=== PATIENT | female | born 1950 | race American Indian/Alaskan Native ===

== ENCOUNTER 2016-10-20 14:26 | Inpatient (IN) | payer OTHER ==
--- NOTE | 2016-10-20 15:08 | Emergency Department Report ---
Chief Complaint: Chest Pain Stated Complaint: CHEST PAIN Time Seen by Provider: 10/20/16 15:05 - HPI History of Present Illness: Patient here reports that she was at latter-day and she began having chest pressure. She said the pressure was 110 but she said she is not having that at present. She said it was located to her mid chest. Patient came by ambulance. Patient has a history of PR in 2010 and she has 3 coronary stents. She has a history of hypertension and breast cancer. EMS gave patient an aspirin. - ROS Review of Systems: All systems are negative unless stated in HPI above. - Exam Vital Signs: Vital Signs 10/20/16 14:48 Temperature 97.9 F Pulse Rate 52 L Respiratory 16 Rate Blood Pressure 104/73 O2 Sat by Pulse 100 Oximetry Physical Exam: General: This is a 66-year-old female well-nourished well-developed in no acute distress. CV: S1, S2. Regular rate and rhythm. Lungs:CTAB, NL work of breathing MSE screening note: Focused history and physical exam performed. Due to findings the following was ordered:see [facility] ED Medical Decision Making - Medical Decision Making Medical decision making: Patient seen by provider in triage area. Appropriate protocol activated and patient to main ED to be seen by physician. ED Disposition for MSE Condition: Stable
[2016-10-20 15:32] LABS: Basophils % (Auto) 1.4 % (0.0-1.8); Hematocrit 35.7 % (30.3-42.9); Mean Corpuscular HGB Conc 34 % (30-34); Mean Corpuscular Hemoglobin 31 pg (28-32); Mean Corpuscular Volume 93 fl (79-97); Platelet Count 380 K/mm3 (140-440); Red Blood Count 3.86 M/mm3 (3.65-5.03); Red Cell Distribution Width 13.1 % (13.2-15.2); White Blood Count 9.3 K/mm3 (4.5-11.0)
[2016-10-20 15:57] LABS: Blood Urea Nitrogen 12 mg/dL (7-17); Calcium 9.2 mg/dL (8.4-10.2); Carbon Dioxide 30 mmol/L (22-30); Chloride 92.2 mmol/L (98-107); Glucose 84 mg/dL (65-100); Potassium 3.4 mmol/L (3.6-5.0); Sodium 135 mmol/L (137-145)
[2016-10-20 15:59] LABS: Anion Gap 16 mmol/L
[2016-10-20 16:00] LABS: Creatine Kinase 45 units/L (30-135); Creatine Kinase MB < 1.0 ng/mL (0.0-4.0)
[2016-10-20] MEDS ORDERED: NITRO-BID 2% TP ONE ×2 (19:25→22:12)
--- NOTE | 2016-10-20 19:47 | Emergency Department Report ---
HPI - General Chief Complaint: Chest Pain Time Seen by Provider: 10/20/16 15:05 - HPI HPI: Room 1 The patient is a 66-year-old female presenting with a chief complaint of chest pain. The patient states this afternoon she was in mandaeism at approximately 13: 40 from she developed substernal chest pressure associated with shortness of breath. Patient denied nausea vomiting or diaphoresis. Patient states the pressure lasted for approximately 30 minutes and then resolved. The patient currently denies chest pressure or shortness of breath. The patient had 3 cardiac stents placed in 2010 Mariaa's last time she had a cardiac catheterization. The patient states she had a normal stress test last year Location: Chest Duration: 30 Minutes Quality: Pressure Severity: Currently 0/10 Modifying factors: [see above] Context: [see above] Mode of transportation: [not driving] ED Past Medical Hx - Past Medical History Previous Medical History?: Yes Hx Hypertension: Yes Hx Heart Attack/AMI: Yes (2010) - Surgical History Past Surgical History?: Yes Hx Coronary Stent: Yes (3 stents placed 2010) Hx Appendectomy: Yes Hx Breast Surgery: Yes (left mastectomy) Additional Surgical History: Hysterectomy - Family History Family history: no significant - Social History Smoking Status: Former Smoker (none 2-3 years) Substance Use Type: Alcohol (occasional), Prescribed - Medications Home Medications: Home Medications Medication Instructions Recorded Confirmed Last Taken Type ALPRAZolam [Xanax] 1 mg PO BID PRN 08/25/13 08/25/13 Unknown History Atorvastatin Calcium [Lipitor] 20 mg PO QHS 08/25/13 08/25/13 Unknown History Ciprofloxacin HCl [Cipro] 500 mg PO Q12H #10 tab 08/25/13 Unknown Rx HYDROcodone/APAP 5-325 [West 1 each PO Q6HR PRN #12 tablet 08/25/13 Unknown Rx 5/325 mg] Hydrocodone Bit/Acetaminophen 1 each PO 08/25/13 08/25/13 Unknown History [Vicodin 5/500] Zolpidem [Ambien] 08/25/13 08/25/13 Unknown History amLODIPine [Norvasc] 5 mg PO DAILY #30 tab 08/25/13 Unknown Rx ED Review of Systems ROS: Stated complaint: CHEST PAIN Other details as noted in HPI Comment: All other systems reviewed and negative Constitutional: denies: chills, fever Eyes: denies: eye pain, eye discharge, vision change ENT: denies: ear pain, throat pain Respiratory: shortness of breath Cardiovascular: chest pain Endocrine: no symptoms reported Gastrointestinal: denies: abdominal pain, nausea, diarrhea Genitourinary: denies: urgency, dysuria, discharge Musculoskeletal: denies: back pain, joint swelling, arthralgia Skin: denies: rash, lesions Neurological: denies: headache, weakness, paresthesias Psychiatric: denies: anxiety, depression Hematological/Lymphatic: denies: easy bleeding, easy bruising Physical Exam - Physical Exam Vital Signs: Vital Signs 10/20/16 14:48 Temperature 97.9 F Pulse Rate 52 L Respiratory 16 Rate Blood Pressure 104/73 O2 Sat by Pulse 100 Oximetry Physical Exam: GENERAL: The patient is well-developed well-nourished female lying on stretcher not appearing to be in acute distress. [] HEENT: Normocephalic. Atraumatic. Extraocular motions are intact. Patient has moist mucous membranes. NECK: Supple. Trachea midline CHEST/LUNGS: Clear to auscultation. There is no respiratory distress noted. HEART/CARDIOVASCULAR: Regular. There is no tachycardia. There is no gallop rub or murmur. ABDOMEN: Abdomen is soft, nontender. Patient has normal bowel sounds. There is no abdominal distention. SKIN: There is no rash. There is no edema. There is no diaphoresis. NEURO: The patient is awake, alert, and oriented. The patient is cooperative. The patient has normal speech MUSCULOSKELETAL: There is no evidence of acute injury. ED Course Vital Signs 10/20/16 14:48 Temperature 97.9 F Pulse Rate 52 L Respiratory 16 Rate Blood Pressure 104/73 O2 Sat by Pulse 100 Oximetry ED Medical Decision Making - Lab Data Result diagrams: 10/20/16 15:16 10/20/16 15:16 Laboratory Tests 10/20/16 10/20/16 10/20/16 15:16 15:16 15:16 WBC 9.3 RBC 3.86 Hgb 12.0 Hct 35.7 MCV 93 MCH 31 MCHC 34 RDW 13.1 L Plt Count 380 Lymph % (Auto) 26.2 [place] % (Auto) 6.2 Eos % (Auto) 1.0 Baso % (Auto) 1.4 Lymph # 2.4 [place] # 0.6 Eos # 0.1 Baso # 0.1 Seg Neutrophils % 65.2 Seg Neutrophils # 6.1 Sodium 135 L Potassium 3.4 L Chloride 92.2 L Anion Gap 16 Estimated GFR > 60 BUN/Creatinine Ratio 20.00 Total Creatine Kinase 45 CK-MB (CK-2) < 1.0 CK-MB (CK-2) Rel Index 2.2 Troponin T < 0.010 10/20/16 17:41 WBC RBC Hgb Hct MCV MCH MCHC RDW Plt Count Lymph % (Auto) [place] % (Auto) Eos % (Auto) Baso % (Auto) Lymph # [place] # Eos # Baso # Seg Neutrophils % Seg Neutrophils # Sodium Potassium Chloride Anion Gap Estimated GFR BUN/Creatinine Ratio Total Creatine Kinase CK-MB (CK-2) CK-MB (CK-2) Rel Index Troponin T < 0.010 CO2 30, BUN 12, creatinine 0.6, calcium 9.2 - EKG Data -: EKG Interpreted by Me EKG shows normal: sinus rhythm Rate: normal - EKG Data When compared to previous EKG there are: previous EKG unavailable Interpretation: nonspecific ST-T wave shelbi - Radiology Data Radiology results: image reviewed (chest x-ray) interpreted by me: Chest x-ray-no focal infiltrates, no pneumothorax - Differential Diagnosis ACS, GERD, pericarditis Critical care attestation.: If time is entered above; I have spent that time in minutes in the direct care of this critically ill patient, excluding procedure time. ED Disposition Clinical Impression: Chest pain Disposition: OP ADMITTED IP TO THIS HOSP Is pt being admited?: Yes Does the pt Need Aspirin: Yes Condition: Fair Instructions: Chest Pain (ED) Referrals: PRIMARY CARE, [Primary Care Provider] - 3-5 Days Time of Disposition: 20:21 (hospitalist paged)
[2016-10-20] MEDS ORDERED: ASPIRIN PO ONE (20:21)
--- NOTE | 2016-10-20 21:07 | Admit Criteria Form ---
Admission Criteria Documentation: CARDIOLOGY GRG Clinical Indications for Admission to Inpatient Care ( Place 'X' for any and all applicable criteria): Hospital admission is needed for appropriate care of the patient because of ANY ONE of the following (1): [ ] I. Hemodynamic instability as indicated by ALL of the following (1)(2)(3) (4)(5) [ ]a) Vital signs or other findings not as expected for chronic patient condition or baseline [ ]b) Instability indicated by ANY ONE of the following: [ ]i) Hypotension [ ]ii) Symptomatic Tachycardia unresponsive to treatment ( e.g., analgesia, fluids, sedation as indicated) [ ]iii) Inadequate perfusion indicated by ANY ONE of the following: [ ] 1) Lactic acidosis (> 2 mmol/L) [ ] 2) New abnormal capillary refill (> 3 seconds) [ ] 3) Reduced urine output [ ] 4) New altered mental status [ ]iv) Orthostatic vital sign changes unresponsive to treatment (e.g., fluids) [ ]v) IV inotropic or vasopressor medication required to maintain adequate blood pressure or perfusion [ ] II. Severe heart failure as indicated by ANY ONE of the following(17)(18) [ ]a) Respiratory distress [ ]b) Hypotension [ ]c) Anasarca (refractory to outpatient therapy) [ ]d) Cardiac arrhythmias of immediate concern [ ]e) Myocardial ischemia [ ] III. Cardiac arrhythmias or findings of immediate concern indicated by ANY ONE of the following (19)(20): [ ] a) Heart rhythms that are inherently dangerous or unstable indicated by ANY ONE of the following (21)(22)(23): [ ] i) Resuscitated ventricular fibrillation or cardiac arrest [ ] ii) Ventricular escape rhythm [ ] iii) Sustained ventricular tachycardia (30 seconds or more of ventricular rhythm at greater than 100 beats per minute) [ ] iv) Nonsustained ventricular tachycardia and ANY ONE of the following: [ ] 1) Suspected cardiac ischemia as cause or consequence of ventricular tachycardia [ ] 2) In setting of acute myocarditis [ ] b) Unstable cardiac conduction defects indicated by ANY ONE of the following(23)(24)(25) [ ] i) Type II second-degree atrioventricular block [ ]ii) Third-degree atrioventricular block [ ]iii) New-onset left bundle branch block with suspected myocardial ischemia [ ]c) Any heart rhythm and ANY ONE of the following (21)(22)(26)(27) (28) [ ] i) Continuous long-term ECG monitoring needed (e.g., initiation of drug requiring monitoring for more than 24 hours) [ ] ii) Patient has automatic implanted cardioverter defibrillator that is repeatedly firing, malfunctioning, or in need of immediate adjustment of settings beyond the scope of ambulatory or observation care [ ]d) Heart rhythms of concern due to ANY ONE of the following: [ ] i) Hypotension [ ] ii) Respiratory distress [ ] iii) Association with other significant symptoms (e.g., bradycardia with syncope or ongoing dizziness, supraventricular tachycardia with chest pain (14)(15)(17) [ ] IV. Monitoring for cardiac contusion beyond the scope of observation care needed [A](30)(31)(32) [ ] V. Surgical or device complication (e.g., valve replacement complication , pacemaker dysfunction) (35)(41)(44)(45)(46) [ ] . Inpatient palliative care needed. [B](49) Also use Inpatient Palliative Care Criteria [ ] VII. Nonbacterial thrombotic (marantic) endocarditis (36)(43)(47)(48) [X ] VIII. Cardiology condition, symptom, or finding for which emergency and observation care has failed or are not considered appropriate. [ ] IX. Acute valvular disease requiring inpatient as indicated by ANY ONE of the following (41) [ ]a) Acute valvular regurgitation (42) [ ]b) Noninfectious valvulitis (43) [ ]c) Obstructive valve thrombosis [ ]d) Paravalvular leak [ ]e) Other significant valvular disorder remaining after emergency or observation level of care (as appropriate) [ ]X. Pericardial disease requiring inpatient treatment as indicated by ANY ONE of the following (33)(34)(35)(36)(37) [ ]a) Suspected tamponade (38)(39)(40) [ ]b) Hemopericardium [ ]c) Other significant pericardial disorder remaining after emergency or observation level of care (as appropriate) [ ] XI. Cardiac ischemia beyond scope of emergency and observation care. [ ] XII. Hypertension requiring inpatient treatment as indicated by ANY ONE of the following (6)(7)(8) [ ]a) SBP greater than 220 mm Hg or DBP greater than 120 mmHg despite treatment [ ]b) SBP greater than 140 mm Hg or DBP greater than 100 mm Hg with evidence of acute end organ damage as indicated by ANY ONE of the following [ ] i) Altered mental status [ ] ii) Acute renal failure as indicated by new onset of ANY ONE of the following (9)(10)(11)(12)(13) [ ]1) 3-fold rise in serum creatinine from baseline [ ]2) Serum creatinine greater than 4 mg/dL ( 354 micromoles/L) with acute rise greater than 0.5 mg/dL (44.2 micromoles/L) [ ]3) Reduction of more than 75% in estimated glomerular filtration rate from baseline [ ]4) Estimated glomerular filtration rate less than 35 mL/min/1.73m2 (0.59 mL/sec/1.73m2) in child up to 18 years of age [ ]5) Cessation of urine output indicated by ALL of the following [ ]A. Adequate volume status [ ]B. Inadequate urine output as indicated by ANY ONE of the following [ ]a. Urine output less than 0.3 mL/kg/hr for 24 hours [ ]b. Anuria (urine output less than 0.1 mL/kg/hr) for 12 hours [ ] iii) Aortic dissection [ ] iv) Myocardial Ischemia [ ] v) Left ventricular heart failure [ ]vi) Retinal Hemorrhage [ ]vii) Other significant finding [ ]c) Hypertension in child requiring inpatient treatment as indicated by ALL of the following(14)(15)(16) [ ] i) Outpatient treatment not effective, not available, or not appropriate [ ]ii) SBP or DBP greater than 95th percentile for age [ ]iii) Evidence of acute end organ damage as indicated by ANY ONE of the following [ ]1) Altered mental status [ ]2) Acute renal failure as indicated by new onset of ANY ONE of the following(9)(10)(11)(12)(13) [ ]A. 3-fold rise in serum creatinine from baseline [ ]B. Serum creatinine greater than 4 mg/dL (354 micromoles/L) with acute rise greater than 0.5 mg/dL (44.2 micromoles/L) [ ]C. Reduction of more than 75% in estimated glomerular filtration rate from baseline [ ]D. Estimated glomerular filtration rate less than 35 mL/min/1.73m2 (0.59 mL/sec/1.73m2) in child up to 18 years of age [ ]E. Cessation of urine output indicated by ALL of the following [ ]a. Adequate volume status [ ]b. Inadequate urine output as indicated by ANY ONE of the following [ ]i) Urine output less than 0.3 mL/kg/hr for 24 hours [ ]ii) Anuria ( urine output less than 0.1 mL/kg/hr) for 12 hours [ ]3) Severe headache [ ]4) Visual disturbance [ ]5) Retinal hemorrhage [ ]6) Other significant finding [ ]XIII. Complications of transplanted heart indicated by ANY ONE of the following(61): [ ]a) Acute graft rejection requiring inpatient management (eg, intravenous immunosuppression)(62)(63) [ ]b) Acute graft heart failure indicated by ANY ONE of the following(64): [ ]i) Hemodynamic instability [ ]ii) Cardiac arrhythmias of immediate concern [ ]iii) Pulmonary edema that is very severe (eg, mechanical ventilation needed, imminent or likely, need for 100% oxygen to keep oxygen saturation above 90%) [ ]iv) Pulmonary edema that is persistent as indicated by ALL of the following: [ ]1) New need for oxygen therapy to keep oxygen saturation above 90% (or increased FiO2 need from baseline) [ ]2) Has not improved sufficiently with emergency department or observation care IV diuretics or other heart failure treatments[E] [ ]v) Altered mental status that is severe or persistent [ ]vi) Increased creatinine (new on laboratory test) with reduction of more than 50% in estimated glomerular filtration rate from baseline [ ]vii) Progressively (ongoing) rising creatinine (known from past laboratory test) with reduction of more than 25% in estimated glomerular filtration rate from baseline [ ]viii) Acute renal failure [ ]ix) Acute peripheral ischemia (eg, examination shows pulseless, cool, mottled, or cyanotic extremity) [ ]x) Pulmonary artery catheter monitoring needed [ ]xi) Other sign or symptom of heart failure requiring inpatient treatment (ie, too severe or not responsive to outpatient and observation care treatment) [ ]c) Infection requiring inpatient management (eg, Hemodynamic instability, need for intravenous antimicrobial treatment)(66)(67)(68)(69)(70) [ ]d) Cardiac allograft vasculopathy requiring inpatient management ( eg evidence of cardiac ischemia)(71) [ ]e) Other complication of transplanted heart (eg, stroke, severe pulmonary hypertension, severe valvular dysfunction) requiring inpatient management(72) The original [facility] content created by [facility] has been revised. The portions of the content which have been revised are identified through the use of italic text or in bold, and [facility] has neither reviewed nor approved the modified material. All other unmodified content is copyright [facility]. Please see references footnoted in the original [facility] edition 2016 Admission Criteria Met: Yes
[2016-10-20] MEDS ORDERED: XANAX PO PRN (22:03)
[2016-10-21] MEDS ORDERED: ZOFRAN IV PRN (00:39)
[2016-10-21] MEDS ORDERED: MILK OF MAGNESIA PO PRN (00:39)
[2016-10-21] MEDS ORDERED: MORPHINE IV PRN (00:39)
[2016-10-21] MEDS ORDERED: TYLENOL PO PRN (00:39)
[2016-10-21] MEDS ORDERED: DULCOLAX PR PRN (00:39)
--- NOTE | 2016-10-21 00:56 | History and Physical Report ---
History of Present Illness Date of examination: 10/20/16 Date of admission: 10/20/16 22:04 History of present illness: 66-year-old woman with a history of hypertension, coronary artery disease, breast cancer comes emergency room with complaints of chest pain. Pain is in the epigastric area which she described as a pressure-like sensation, intermittent in nature lasting for 10 minutes, intensity 6/10, no radiation, she cannot identify exacerbating or relieving factors. EMS gave her 4 baby aspirin, last stress test was last year which was negative. She denies nausea vomiting, diaphoresis, palpitation, shortness of breath Patient denies cough, abdominal pain, hematochezia, dysuria, frequency, focal weakness, dysarthria, fever chills, polydipsia polyuria, hot or cold intolerance , easy bruisability, or rash or bleeding from mucosal membrane, rhinorrhea, epistaxis, earache, tinnitus, blurry vision, eye discharge, anxiety, depression. Other review of systems negative PAST SURGICAL HISTORY: Left mastectomy, hysterectomy, appendectomy SOCIAL HISTORY: Quit tobacco use, social alcohol, no drugs FAMILY HISTORY: Coronary artery disease Medications and Allergies Allergies Allergy/AdvReac Type Severity Reaction Status Date / Time No Known Allergies Allergy Verified 10/20/16 22:08 Home Medications Medication Instructions Recorded Confirmed Last Taken Type ALPRAZolam [Xanax] 1 mg PO BID PRN 08/25/13 08/25/13 10/20/16 History Atenolol [Tenormin] 50 mg PO DAILY 10/20/16 10/20/16 10/20/16 History AtorvaSTATin [Lipitor] 40 mg PO DAILY 10/20/16 10/20/16 10/19/16 History Bethanechol [Urecholine] 25 mg PO BID 10/20/16 10/20/16 10/20/16 History Celecoxib [celeBREX] mg PO BID 10/20/16 10/20/16 History Clopidogrel Bisulfate [Plavix] 75 mg PO DAILY 10/20/16 10/20/16 10/20/16 History Omeprazole 20 mg PO 10/20/16 10/20/16 History Zolpidem [Ambien] 10 mg PO QHS 10/20/16 10/20/16 10/19/16 History Active Meds: Active Medications Acetaminophen (Tylenol) 650 mg PO Q4H PRN PRN Reason: Pain MILD(1-3)/Fever >100.5/GONZALEZ Alprazolam (Xanax) 1 mg PO BID PRN PRN Reason: Anxiety Last Admin: 10/20/16 22:22 Dose: 1 mg Amlodipine Besylate (Norvasc) 5 mg PO DAILY JODY Aspirin (Aspirin) 325 mg PO QDAY JDOY Atorvastatin Calcium (Lipitor) 20 mg PO QHS JODY Bisacodyl (Dulcolax) 10 mg TN QDAY PRN PRN Reason: Constipation unrelieved by MOM Enoxaparin Sodium (Lovenox) 40 mg SUB-Q QDAY@1000 JODY Magnesium Hydroxide (Milk Of Magnesia) 30 ml PO Q4H PRN PRN Reason: Constipation Morphine Sulfate (Morphine) 2 mg IV Q4H PRN PRN Reason: Pain, Moderate (4-6) Ondansetron HCl (Zofran) 4 mg IV Q8H PRN PRN Reason: N/V unrelieved by Reglan Exam - Physical Exam Narrative exam: Gen. appearance: Patient lying in bed, no apparent distress HEENT: Normocephalic, atraumatic, pupils equally round and reactive to light, extraocular movement intact, and no sclericterus,. No JVD or thyromegaly or nodule,neck supple, no carotid bruit ,mucous membranes moist, no exudate or erythema Heart: S1, S2, regular rate and rhythm Lungs: Clear to auscultation bilaterally, breathing comfortable Abdomen: Positive bowel sounds, nontender, nondistended, no organomegaly Extremity: No edema, cyanosis, clubbing Skin: No rash, nodules, warm, dry Neuro: Oriented 3, cranial nerves II-12 intact, speech is fluent, motor and sensory intact - Constitutional Vitals: Temp Pulse Resp BP Pulse Ox 97.9 F 70 14 132/57 98 10/20/16 14:48 10/20/16 22:16 10/20/16 22:23 10/20/16 22:16 10/20/16 22:23 Results - Labs CBC & Chem 7: 10/20/16 15:16 10/20/16 15:16 - Imaging and Cardiology EKG: image reviewed Chest x-ray: image reviewed Assessment and Plan Unstable angina Coronary artery disease Hypertension History of breast cancer Admits medicine Check cardiac enzymes, continue cardiac medications and consult cardiology Start DVT prophylaxis
[2016-10-21 01:40] LABS: Creatine Kinase MB < 1.0 ng/mL (0.0-4.0)
[2016-10-21 01:42] LABS: Creatine Kinase 36 units/L (30-135)
[2016-10-21 06:54] LABS: Basophils % (Auto) 0.9 % (0.0-1.8); Eosinophils % (Auto) 1.5 % (0.0-4.3); Hematocrit 32.8 % (30.3-42.9); Hemoglobin 10.9 gm/dl (10.1-14.3); Mean Corpuscular HGB Conc 33 % (30-34); Mean Corpuscular Hemoglobin 30 pg (28-32); Mean Corpuscular Volume 91 fl (79-97); Platelet Count 355 K/mm3 (140-440); Red Blood Count 3.63 M/mm3 (3.65-5.03); White Blood Count 6.3 K/mm3 (4.5-11.0)
[2016-10-21 07:09] LABS: Anion Gap 13 mmol/L; Blood Urea Nitrogen 12 mg/dL (7-17); Calcium 8.7 mg/dL (8.4-10.2); Carbon Dioxide 31 mmol/L (22-30); Chloride 95.7 mmol/L (98-107); Glucose 87 mg/dL (65-100); Sodium 137 mmol/L (137-145)
[2016-10-21 07:12] LABS: Creatine Kinase 34 units/L (30-135)
[2016-10-21 07:20] LABS: Creatine Kinase MB < 1.0 ng/mL (0.0-4.0)
--- NOTE | 2016-10-21 07:58 | XRay Report ---
AP CHEST: HISTORY: chest pain AP view of the chest demonstrates a normal mediastinal and cardiac contour with clear lungs and normal bony and soft tissue structures. IMPRESSION: Unremarkable AP chest.
[2016-10-21] MEDS: K-DUR PO SCH ×2 (09:08→13:12)
--- NOTE | 2016-10-21 09:34 | Consultation ---
History of Present Illness Consult date: 10/21/16 Requesting physician: CORWIN HARRIS History of present illness: The patient is a 66 year old female who is followed by Dr. Iam Villarreal in the office with a history of coronary artery disease s/p PCI (2010) who presented with complaints of chest pressure and shortness of breath that started yesterday while she was at [employer]. No nausea, vomiting or diaphoresis. She states that her symptoms lasted for approximately 30 minutes and resolved on their own. Troponin negative x 4. Echo done 10/2015 showed normal LV function. Stress test done 09/2015 was negative for ischemia. Past History Past Medical History: CAD, hypertension, hyperlipidemia, other (breast CA) Past Surgical History: appendectomy, hysterectomy, PTCA, Other (left mastectomy) Social history: smoking. denies: alcohol abuse, prescription drug abuse, IV drug use Family history: no significant family history Medications and Allergies Allergies Allergy/AdvReac Type Severity Reaction Status Date / Time No Known Allergies Allergy Verified 10/20/16 22:08 Home Medications Medication Instructions Recorded Confirmed Last Taken Type ALPRAZolam [Xanax] 1 mg PO BID PRN 08/25/13 08/25/13 10/20/16 History Atenolol [Tenormin] 50 mg PO DAILY 10/20/16 10/20/16 10/20/16 History AtorvaSTATin [Lipitor] 40 mg PO DAILY 10/20/16 10/20/16 10/19/16 History Bethanechol [Urecholine] 25 mg PO BID 10/20/16 10/20/16 10/20/16 History Celecoxib [celeBREX] mg PO BID 10/20/16 10/20/16 History Clopidogrel Bisulfate [Plavix] 75 mg PO DAILY 10/20/16 10/20/16 10/20/16 History Omeprazole 20 mg PO 10/20/16 10/20/16 History Zolpidem [Ambien] 10 mg PO QHS 10/20/16 10/20/16 10/19/16 History Active Meds: Active Medications Acetaminophen (Tylenol) 650 mg PO Q4H PRN PRN Reason: Pain MILD(1-3)/Fever >100.5/GONZALEZ Alprazolam (Xanax) 1 mg PO BID PRN PRN Reason: Anxiety Last Admin: 01/08/17 22:22 Dose: 1 mg Amlodipine Besylate (Norvasc) 5 mg PO DAILY [facility] Aspirin (Aspirin) 325 mg PO QDAY [facility] Atorvastatin Calcium (Lipitor) 20 mg PO QHS [facility] Bisacodyl (Dulcolax) 10 mg ID QDAY PRN PRN Reason: Constipation unrelieved by MOM Enoxaparin Sodium (Lovenox) 40 mg SUB-Q QDAY@1000 [facility] Magnesium Hydroxide (Milk Of Magnesia) 30 ml PO Q4H PRN PRN Reason: Constipation Morphine Sulfate (Morphine) 2 mg IV Q4H PRN PRN Reason: Pain, Moderate (4-6) Ondansetron HCl (Zofran) 4 mg IV Q8H PRN PRN Reason: N/V unrelieved by Reglan Potassium Chloride (K-Dur) 30 meq PO Q2H [facility] Stop: 10/21/16 10:01 Last Admin: 10/21/16 09:08 Dose: Not Given Review of Systems Constitutional: no fever, no chills Ears, nose, mouth and throat: no nasal congestion, no nasal discharge, no sinus pressure Cardiovascular: chest pain, shortness of breath Respiratory: shortness of breath, no cough, no congestion, no wheezing Gastrointestinal: no abdominal pain, no nausea, no vomiting, no diarrhea Genitourinary Female: no dysuria, no urgency Musculoskeletal: no neck stiffness, no neck pain, no myalgias Integumentary: no rash, no pruritis Neurological: no parathesias, no numbness, no tingling, no headaches Endocrine: no cold intolerance, no heat intolerance Hematologic/Lymphatic: no easy bruising, no easy bleeding Allergic/Immunologic: no urticaria, no wheezing Physical Examination Vital Signs Temp Pulse Resp BP Pulse Ox 97.9 F 52 L 16 104/73 100 10/20/16 14:48 10/20/16 14:48 10/20/16 14:48 10/20/16 14:48 10/20/16 14:48 General appearance: no acute distress HEENT: Positive: PERRL, Normocephaly, Mucus Membranes Moist Neck: Positive: neck supple, trachea midline Cardiac: Positive: Reg Rate and Rhythm, S1/S2 Lungs: Positive: clear to auscultation Neuro: Positive: Grossly Intact Abdomen: Positive: Soft, Active Bowel Sounds. Negative: Tender Skin: Positive: Clear. Negative: Rash Extremities: Present: normal. Absent: edema Results 10/21/16 06:03 10/21/16 06:03 Cardiac Enzymes 10/21/16 10/21/16 Range/Units 01:10 06:03 CK-MB (CK-2) < 1.0 < 1.0 (0.0-4.0) ng/mL CBC 10/21/16 Range/Units 06:03 WBC 6.3 (4.5-11.0) K/mm3 RBC 3.63 L (3.65-5.03) M/mm3 Hgb 10.9 (10.1-14.3) gm/dl Hct 32.8 (30.3-42.9) % Plt Count 355 (140-440) K/mm3 Lymph # 2.2 (1.2-5.4) K/mm3 [place] # 0.5 (0.0-0.8) K/mm3 Eos # 0.1 (0.0-0.4) K/mm3 Baso # 0.1 (0.0-0.1) K/mm3 Comprehensive Metabolic Panel 10/21/16 Range/Units 06:03 Sodium 137 (137-145) mmol/L Potassium 3.0 L (3.6-5.0) mmol/L Chloride 95.7 L (98-107) mmol/L Carbon Dioxide 31 H (22-30) mmol/L BUN 12 (7-17) mg/dL Creatinine 0.8 (0.7-1.2) mg/dL Glucose 87 (65-100) mg/dL Calcium 8.7 (8.4-10.2) mg/dL - Imaging and Cardiology Echo: report reviewed (10/2015: normal LV function ) EKG: image reviewed EKG interpretations - Telemetry EKG Rhythm: Sinus Rhythm - EKG Sinus rhythms and dysrhythmias: sinus rhythm Repolarization changes or abnormalities: ST or T wave suggestive of ischemia Assessment and Plan Chest pain/SOB symptoms resolved troponin negative x 4 Echo 10/2015: normal LV function await stress test results Coronary artery disease s/p PCI of RCA continue ASA, Plavix, statin Hypertension stable Hyperlipidemia Tobacco use Await stress test results. The patient has been seen in conjunction with Dr. Hardwick who agrees with the assessment and plan of care. Thank you Dr. Harris for allowing us to participate in the care of this patient.
[2016-10-21] MEDS ORDERED: NORVASC PO SCH (10:00)
[2016-10-21] MEDS ORDERED: LOVENOX SUB-Q SCH ×2 (10:00)
[2016-10-21] MEDS ORDERED: ASPIRIN PO SCH (10:00)
[2016-10-21] MEDS ORDERED: LEXISCAN IV ONE (10:11)
--- NOTE | 2016-10-21 13:27 | Progress Note ---
Assessment and Plan Assessment and plan: 1. CAD with chest pressure- AMI ruled out based on negative CE; cont asa. statin ; f/u stress test; f/u cardiology 2. Hypertension-cotn amlodipine 3. History of breast cancer- stable; 4. Hypokalemia- will replace with po supplementation 5. DVT prophylaxis- lovenox For d/c if stress test negative History Interval history: f/u chest pain ; CAD Patient seen at the bedside; no chest pressure Hospitalist Physical - Constitutional Vitals: Temp Pulse Resp BP Pulse Ox 97.2 F L 58 L 20 131/62 97 10/21/16 12:01 10/21/16 12:01 10/21/16 12:01 10/21/16 12:01 10/21/16 12:01 General appearance: Present: no acute distress, well-nourished - EENT Eyes: Present: PERRL, EOM intact. Absent: scleral icterus, conjunctival injection ENT: hearing intact, clear oral mucosa, no oropharyngeal erythema, no poor dentition - Neck Neck: Present: supple, normal ROM. Absent: enlarged thyroid, masses or JVD - Respiratory Respiratory effort: normal Respiratory: negative: diminished, rales, rhonchi, wheezing - Cardiovascular Rhythm: regular Heart Sounds: Present: S1 & S2. Absent: gallop - Extremities Extremities: no ischemia, pulses intact, pulses symmetrical, No edema Peripheral Pulses: within normal limits - Abdominal General gastrointestinal: soft, non-tender, non-distended, normal bowel sounds - Integumentary Integumentary: Present: clear - Psychiatric Psychiatric: appropriate mood/affect, intact judgment & insight, cooperative - Neurologic Neurologic: CNII-XII intact, moves all extremities Results - Labs CBC & Chem 7: 10/21/16 06:03 10/21/16 06:03 Labs: Laboratory Last Values WBC 6.3 K/mm3 (4.5-11.0) 10/21/16 06:03 RBC 3.63 M/mm3 (3.65-5.03) L 10/21/16 06:03 Hgb 10.9 gm/dl (10.1-14.3) 10/21/16 06:03 Hct 32.8 % (30.3-42.9) 10/21/16 06:03 MCV 91 fl (79-97) 10/21/16 06:03 MCH 30 pg (28-32) 10/21/16 06:03 MCHC 33 % (30-34) 10/21/16 06:03 RDW 13.0 % (13.2-15.2) L 10/21/16 06:03 Plt Count 355 K/mm3 (140-440) 10/21/16 06:03 Lymph % (Auto) 35.3 % (13.4-35.0) H 10/21/16 06:03 [place] % (Auto) 7.8 % (0.0-7.3) H 10/21/16 06:03 Eos % (Auto) 1.5 % (0.0-4.3) 10/21/16 06:03 Baso % (Auto) 0.9 % (0.0-1.8) 10/21/16 06:03 Lymph # 2.2 K/mm3 (1.2-5.4) 10/21/16 06:03 [place] # 0.5 K/mm3 (0.0-0.8) 10/21/16 06:03 Eos # 0.1 K/mm3 (0.0-0.4) 10/21/16 06:03 Baso # 0.1 K/mm3 (0.0-0.1) 10/21/16 06:03 Seg Neutrophils % 54.5 % (40.0-70.0) 10/21/16 06:03 Seg Neutrophils # 3.4 K/mm3 (1.8-7.7) 10/21/16 06:03 Sodium 137 mmol/L (137-145) 10/21/16 06:03 Potassium 3.0 mmol/L (3.6-5.0) L 10/21/16 06:03 Chloride 95.7 mmol/L (98-107) L 10/21/16 06:03 Carbon Dioxide 31 mmol/L (22-30) H 10/21/16 06:03 Anion Gap 13 mmol/L 10/21/16 06:03 BUN 12 mg/dL (7-17) 10/21/16 06:03 Creatinine 0.8 mg/dL (0.7-1.2) 10/21/16 06:03 Estimated GFR > 60 ml/min 10/21/16 06:03 BUN/Creatinine Ratio 15.00 % 10/21/16 06:03 Glucose 87 mg/dL (65-100) 10/21/16 06:03 Calcium 8.7 mg/dL (8.4-10.2) 10/21/16 06:03 Total Creatine Kinase 34 units/L (30-135) 10/21/16 06:03 CK-MB (CK-2) < 1.0 ng/mL (0.0-4.0) 10/21/16 06:03 CK-MB (CK-2) Rel Index 2.9 (0-4) 10/21/16 06:03 Troponin T < 0.010 ng/mL (0.00-0.029) 10/21/16 06:03
--- NOTE | 2016-10-21 13:45 | Discharge Summary ---
Providers - Providers Date of Admission: 10/20/16 22:04 Date of discharge: 10/21/16 Attending physician: SAEID SYLVESTER Primary care physician: OIL INSPECTOR Hospitalization Reason for admission: chest pain Condition: Fair Pertinent studies: CXR- no abnormality Hospital course: Miss Harris is a 66 y/o F who presented to the ER with chest pain and acute recurrent infarction was ruled out based on negative cardiac enzymes. She also had a stress test which was normal. She was seen by the tank pumper and cleared for discharge. It was felt that her chest pain was related to costochondritis. Condition at discharge is stable 32 minutes spent preparing discharge Disposition: DISCHARGED TO HOME OR SELFCARE - Discharge Diagnoses (1) Chest pain Status: Acute (2) History of hypertension Status: Acute Core Measure Documentation - Palliative Care Palliative Care/ Comfort Measures: Not Applicable - Core Measures Any of the following diagnoses?: none Exam - Constitutional Vitals: Temp Pulse Resp BP Pulse Ox 97.2 F L 58 L 20 131/62 97 10/21/16 12:01 10/21/16 12:01 10/21/16 12:01 10/21/16 12:01 10/21/16 12:01 General appearance: Present: no acute distress, well-nourished - EENT Eyes: Present: PERRL, EOM intact. Absent: scleral icterus, conjunctival injection ENT: hearing intact, clear oral mucosa, no oropharyngeal erythema, no poor dentition - Neck Neck: Present: supple, normal ROM. Absent: enlarged thyroid, masses or JVD - Respiratory Respiratory effort: normal Respiratory: negative: diminished, rales, rhonchi, wheezing - Cardiovascular Rhythm: regular Heart Sounds: Present: S1 & S2. Absent: gallop - Extremities Extremities: no ischemia, pulses intact, pulses symmetrical, No edema Peripheral Pulses: within normal limits - Abdominal General gastrointestinal: Present: soft, non-tender, non-distended, normal bowel sounds - Rectal Rectal Exam: deferred - Integumentary Integumentary: Present: clear, warm - Musculoskeletal Musculoskeletal: strength equal bilaterally - Psychiatric Psychiatric: appropriate mood/affect, intact judgment & insight, cooperative - Neurologic Neurologic: CNII-XII intact, moves all extremities Plan Activity: no restrictions Diet: low salt Follow up with: PRIMARY CARE, [Primary Care Provider] - 3-5 Days
[2016-10-21 14:46] VITALS: BP 121/73
--- NOTE | 2016-10-22 03:33 | Treadmill Report ---
MYOCARDIAL PERFUSION IMAGING STUDY Resting myocardial perfusion images with 10 mCi of technetium 99 Myoview was given. This revealed homogeneous radioisotope activity throughout the myocardium. Subsequently, the patient was given 0.4 mg of Lexiscan and then images were done by injecting 28 mCi of technetium 99m Myoview. Images revealed homogeneous radioisotope activity as before. On gated scan, there is no segmental motion abnormality noted. Ejection fraction was 68%. IMPRESSION: This test is unremarkable, negative for ischemia. JOB# [id number] ADALGISA/JODIE
[2016-10-22] MEDS ORDERED: TENORMIN PO SCH (10:00)
[2016-10-22] MEDS ORDERED: PLAVIX PO SCH (10:00)
== END 2016-10-21 15:40 | disposition home or self-care (01) | DRG 206 ==
LOC: ED 14:26 → 4A 22:04
PROVIDERS: ADMIT Internal Medicine; ATTEND Hospitalist
DX: M94.0 Chondrocostal junction syndrome [Tietze] (principal); I25.110 Atherosclerotic heart disease of native coronary artery with unstable angina pectoris; I10 Essential (primary) hypertension; E78.5 Hyperlipidemia, unspecified; E87.6 Hypokalemia; I25.2 Old myocardial infarction; Z95.5 Presence of coronary angioplasty implant and graft; Z85.3 Personal history of malignant neoplasm of breast; Z90.49 Acquired absence of other specified parts of digestive tract; Z90.12 Acquired absence of left breast and nipple; Z90.710 Acquired absence of both cervix and uterus; Z87.891 Personal history of nicotine dependence; Z79.899 Other long term (current) drug therapy; Z82.49 Family history of ischemic heart disease and other diseases of the circulatory system
CPT/HCPCS: 36415; 71010; 78452; 80048; 82550; 82553; 84484; 85025; 93005; 93010; 93017; A9502; J1650; J2785